=== PATIENT | female | born 1950 | race African-American/Black ===

== ENCOUNTER 2021-04-30 15:46 | Outpatient (CLI) | payer MEDICARE, SELFPAY ==
--- NOTE | ~2021-04-30 | MM_ITS ---
EXAMINATION: MM screening [facility] w farida HISTORY: Screening mammogram, family history of breast cancer in her mother and sister. TECHNIQUE: Craniocaudal and mediolateral oblique 3-D tomosynthesis images were obtained and synthetic 2-D images were generated. CAD analysis was submitted and interpreted. COMPARISON: No prior mammogram is available for comparison at this institution. BREAST PARENCHYMAL COMPOSITION: The breasts are almost entirely fatty. FINDINGS: RIGHT BREAST: An asymmetry is present in the middle third of the outer breast on the craniocaudal vie w. LEFT BREAST: There is no evidence of suspicious mass, calcification, or architectural distortion to s uggest malignancy. IMPRESSION: 1. Right breast asymmetry which may represent the patient's baseline however no comparison is current ly available. 2. Comparison with prior mammograms is necessary. BI-RADS Category 0: Incomplete: Needs comparison with prior mammograms. Reviewed, dictated and finalized at location A. IMPRESSION: 1. Right breast asymmetry which may represent the patient's baseline however no comparison is currently available. 2. Comparison with prior mammograms is necessary. BI-RADS Category 0: Incomplete: Needs comparison with prior mammograms.
== END 2021-04-30 15:47 | disposition home or self-care (01) ==
LOC: ANHIMG 15:47
PROVIDERS: PCP Family Medicine; Visit Provider Student in an Organized Health Care Education/Training Program
DX: Z12.31 Encounter for screening mammogram for malignant neoplasm of breast (principal); R92.8 Other abnormal and inconclusive findings on diagnostic imaging of breast
CPT/HCPCS: 77063; 77067

== ENCOUNTER 2021-12-15 13:20 | Outpatient (CLI) | payer MEDICARE, SELFPAY | END 2021-12-15 13:21 | disposition home or self-care (01) | LOC: ANHAUDIO 13:21 | PROVIDERS: PCP Family Medicine; Visit Provider Otolaryngology | DX: H90.3 Sensorineural hearing loss, bilateral (principal) | CPT/HCPCS: 92557; 92567 ==

== ENCOUNTER 2022-10-05 13:54 | Outpatient (CLI) | payer MEDICARE, SELFPAY ==
[2022-10-05 17:42] LABS: Basophils Percent Auto 0.7 % (0.2-1.2); Eosinophils Absolute Auto 0.1 K/mm3 (0-0.3); Hematocrit 37.8 % (37.0-47.0); Hemoglobin 12.1 g/dL (12.0-15.0); Lymphocytes Absolute Auto 0.93 K/mm3 (0.9-3.2); Lymphocytes Percent Auto 34.8 % (18.3-44.2); Mean Corpuscular Hemoglobin 27.3 pg (26-34); Mean Corpuscular Volume 85.3 fl (80-100); Mean Platelet Volume 10.4 fl (7.4-10.4); Monocytes Absolute Auto 0.4 K/mm3 (0.1-0.6); Monocytes Percent Auto 13.1 % (2.6-8.5); Neutrophils Absolute Auto 1.3 K/mm3 (1.3-6.7); Neutrophils Percent Auto 48.4 % (45.5-73.1); Platelet Count Result 255 k/mm3 (150-375); Red Blood Count 4.43 M/mm3 (4.2-5.4); Red Cell Distribution Width 16.1 % (11.5-14.5); White Blood Count 2.7 K/mm3 (4.5-10.0)
[2022-10-05 18:46] LABS: Alanine Aminotransferase 16 U/L (6-35); Albumin Level 4.1 g/dL (3.5-5.1); Alkaline Phosphatase 72 U/L (38-126); Anion Gap 5 mmol/L (8-16); Aspartate Amino Transferase 28 U/L (14-36); Bilirubin,Total 0.9 mg/dL (0.2-1.3); Blood Urea Nitrogen 12 mg/dL (7-17); Calcium 9.6 mg/dL (8.4-10.2); Carbon Dioxide 31 mmol/L (22-30); Chloride 105 mmol/L (98-107); Cholesterol 154 mg/dL (0-200); Estimated Glomerular Filt Rate > 60; Glucose 100 mg/dL (65-110); HDL Direct 59 mg/dL; Sodium 141 mmol/L (137-145); Triglycerides 89 mg/dL (<150)
[2022-10-05 18:57] LABS: LDL Cholesterol Direct 55 mg/dL
[2022-10-05 19:34] LABS: Vitamin D 25 Hydroxy 29.8 ng/mL
[2022-10-05 20:45] LABS: Hemoglobin A1C 5.9 % (<5.7)
[2022-10-06 18:59] LABS: Creatinine Urine 301.7 mg/dL
[2022-10-06 19:07] LABS: MALB Creatinine Ratio 3.5 mg/g (0-30); Microalbumin Urine Random 10.7 mg/L (0-16.7)
== END 2022-10-05 13:55 | disposition home or self-care (01) ==
LOC: ANHGOSHLAB 13:58
PROVIDERS: PCP Family Medicine; Referring Provider Specialist; Visit Provider Nurse Practitioner
DX: E78.5 Hyperlipidemia, unspecified (principal); I10 Essential (primary) hypertension; R06.09 Other forms of dyspnea; E55.9 Vitamin D deficiency, unspecified; E11.9 Type 2 diabetes mellitus without complications
CPT/HCPCS: 36415; 80053; 80061; 82043; 82306; 83036; 85025

== ENCOUNTER 2022-10-29 11:12 | Outpatient (CLI) | payer BC, MEDICARE, SELFPAY ==
[2022-10-29 11:38] LABS: Basophils Percent Auto 0.6 % (0.2-1.2); Eosinophils Absolute Auto 0.1 K/mm3 (0-0.3); Eosinophils Percent Auto 3.4 % (0-4.4); Hematocrit 41.9 % (37.0-47.0); Hemoglobin 13.4 g/dL (12.0-15.0); Lymphocytes Absolute Auto 0.99 K/mm3 (0.9-3.2); Lymphocytes Percent Auto 30.8 % (18.3-44.2); Mean Corpuscular Hemoglobin 27.6 pg (26-34); Mean Corpuscular Volume 86.4 fl (80-100); Mean Platelet Volume 9.6 fl (7.4-10.4); Monocytes Absolute Auto 0.2 K/mm3 (0.1-0.6); Monocytes Percent Auto 6.9 % (2.6-8.5); Neutrophils Absolute Auto 1.9 K/mm3 (1.3-6.7); Neutrophils Percent Auto 58.3 % (45.5-73.1); Platelet Count Result 244 k/mm3 (150-375); Red Blood Count 4.85 M/mm3 (4.2-5.4); Red Cell Distribution Width 15.6 % (11.5-14.5); White Blood Count 3.2 K/mm3 (4.5-10.0)
== END 2022-10-29 11:13 | disposition home or self-care (01) ==
LOC: ANHLAB 11:17
PROVIDERS: PCP Family Medicine; Visit Provider Nurse Practitioner
DX: D72.819 Decreased white blood cell count, unspecified (principal)
CPT/HCPCS: 36415; 85025

== ENCOUNTER 2023-02-22 16:40 | Outpatient (CLI) | payer BC, MEDICARE, SELFPAY ==
--- NOTE | ~2023-02-22 | DEXA_ITS ---
Bone Density Report Name: NATALI BUI Age: 72 Sex: Female Ethnicity: Black Date of : 1950 Indication: postmenopausal; screening for osteoporosis; prior fracture; hysterectomy; Referring Provider: SHIELA OLIVA Study: Bone densitometry was performed. Exam Date: February 22, 2023 Accession number: [id number] Bone Density: Region BMD T-score Z-score Classification AP Spine(L1-L4) 1.225 1.6 3.1 Normal Femoral Neck (Left) 0.795 -0.5 0.4 Normal Total Hip (Left) 0.919 -0.2 0.4 Normal Femoral Neck (Right) 0.764 -0.8 0.1 Normal Total Hip (Right) 0.878 -0.5 0.2 Normal Total Hip Mean 0.898 -0.4 0.3 Normal World Health Organization criteria for BMD impression classify patients as: Normal (T-score at or above -1.0), Osteopenia (T-score between -1.0 and -2.5), or Osteoporosis (T-score at or below -2.5). 10-year Fracture Risk: FRAX not reported because: All T-scores for Spine Total, Hip Total, Femoral Neck at or above -1.0 Prior hip or vertebral fracture Previous Exams: Region Exam Age BMD T-score BMD Change BMD Change Date g/cm2 vs Baseline vs Previous AP Spine (L1-L4) 02/22/2023 72 1.225 1.6 0.037 (3.1%)* 0.037 (3.1%)* 02/16/2018 67 1.188 1.3 Total Hip(Left) 02/22/2023 72 0.919 -0.2 0.048 (5.5%)* 0.048 (5.5%)* 02/16/2018 67 0.871 -0.6 Total Hip(Right) 02/22/2023 72 0.878 -0.5 -0.068 (-7.2%) -0.068 (-7.2%) 02/16/2018 67 0.946 0.0 *Denotes significance at 95% confidence level, LSC for AP Spine = 0.022 g/cm2, LSC for Total Hip = 0.027 g/cm2 Clinical Information Provided by Patient: Have had a previous hip or vertebral fracture Has had a low trauma fracture Has used the following medications: Vitamin D, Calcium Has the following medical conditions: Hysterectomy Patient maximum height was 69.5 Menopause Age: 50 Drinks caffeinated beverages Onset of menses at age 14 Number of children 8 Impression: The patient has normal bone mass. The patient has risk factors, including: previous fracture. The BMD for the Total Hip(Right) decreased, changing by -7.2% since the last DXA exam. Discussion: INCREASED RISK OF FRACTURE DUE TO HISTORY OF FRACTURE. The patient's previous fracture puts the patient at high risk of a future fracture. In untreated patients, the risk of osteoporotic fracture increases approximately two-fold for each 1.0 SD decrease in T-score. Low bone density is not the only risk factor for fr
--- NOTE | ~2023-02-22 | MM_ITS ---
EXAMINATION: MM screening [facility] BI w farida HISTORY: Screening mammogram TECHNIQUE: Craniocaudal and mediolateral oblique 3-D tomosynthesis images were obtained and synthetic 2-D images were generated. CAD analysis was submitted and interpreted. COMPARISON: 04/30/2021, 01/23/2018, 08/04/2015 BREAST PARENCHYMAL COMPOSITION: The breasts are almost entirely fatty. FINDINGS: A stable asymmetry is again noted in the right breast on the craniocaudal view. No suspicio us mass, calcification, or architectural distortion are identified in either breast to suggest malign adriana. There has been no suspicious interval change. IMPRESSION: 1. No mammographic evidence of malignancy. 2. Recommend routine screening mammography in one year. BI-RADS Category 2: Benign finding(s). Reviewed, dictated and finalized at location A.
== END 2023-02-22 16:41 | disposition home or self-care (01) ==
PROVIDERS: PCP Family Medicine; Visit Provider Nurse Practitioner
DX: Z12.31 Encounter for screening mammogram for malignant neoplasm of breast (principal); Z78.0 Asymptomatic menopausal state
CPT/HCPCS: 77063; 77067; 77080